=== PATIENT | female | born 1990 | race Caucasian/White ===

== ENCOUNTER 2019-11-11 18:22 | Emergency (ER) | payer BC, OTHER ==
[~2019-11-11] VITALS: Ht 154.9 cm; Wt 48.1 kg
[2019-11-11 18:40] VITALS: Ht 154.9 cm; Wt 48.1 kg
[2019-11-11 20:30] VITALS: BP 100/40
== END 2019-11-11 20:30 | disposition home or self-care (01) ==
LOC: ED 18:22
DX: K59.00 Constipation, unspecified (principal); R10.9 Unspecified abdominal pain; Z88.8 Allergy status to other drugs, medicaments and biological substances; Z98.890 Other specified postprocedural states